=== PATIENT | female | born 1985 | race Caucasian/White ===

== ENCOUNTER 2017-12-28 00:04 | Emergency (ER) | payer OTHER ==
[~2017-12-28] VITALS: Ht 162.6 cm; Wt 81.6 kg
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
[2017-12-28 00:48] VITALS: BP 140/86
[2017-12-28 00:54] VITALS: BP 140/86
== END 2017-12-28 01:51 | disposition home or self-care (01) ==
LOC: EDBD 00:04 → EMR 01:40
DX: R51 Headache (principal); F31.9 Bipolar disorder, unspecified; E11.9 Type 2 diabetes mellitus without complications; Z59.0 Homelessness
CPT/HCPCS: 99282

== ENCOUNTER 2018-01-28 04:36 | Emergency (ER) | payer OTHER ==
[~2018-01-28] VITALS: Ht 157.5 cm; Wt 81.6 kg
[2018-01-28] MEDS ORDERED: NKM (04:46)
[2018-01-28] MEDS ORDERED: DiphenhydrAMINE 50mg/ml Inj IVP ONE (05:00)
[2018-01-28 05:16] VITALS: BP 141/80
[2018-01-28 05:32] LABS: BASOPHILS % (AUTO) 0.8 % (0.0-2.0); HEMATOCRIT 35.6 % (37.0-47.0); HEMOGLOBIN 10.9 G/DL (12.0-16.0); LYMPHOCYTES % (AUTO) 32.2 % (20.0-45.0); MEAN CORPUSCULAR VOLUME 65 FL (80-99); MONOCYTES % (AUTO) 6.2 % (1.0-10.0); NEUTROPHILS % (AUTO) 59.8 % (45.0-75.0); PLATELET COUNT 339 K/UL (150-450); RED BLOOD COUNT 5.46 M/UL (4.20-5.40); RED CELL DISTRIBUTION WIDTH 14.9 % (11.6-14.8); WHITE BLOOD COUNT 13.9 K/UL (4.8-10.8)
[2018-01-28] MEDS ORDERED: DiphenhydrAMINE 50mg/ml Inj ONE (05:33)
[2018-01-28 05:40] LABS: APPEARANCE,URINE SLIGHTLY CLOUDY; BILIRUBIN, URINE NEGATIVE (NEGATIVE); COLOR,URINE PALE YELLOW; GLUCOSE, URINE (UA) NEGATIVE (NEGATIVE); KETONES,URINE NEGATIVE (NEGATIVE); LEUKOCYTE ESTERASE ,URINE 1+ (NEGATIVE); NITRITE,URINE NEGATIVE (NEGATIVE); PH,URINE 7 (4.5-8.0); PROTEIN,URINE NEGATIVE (NEGATIVE); UROBILINOGEN,URINE NORMAL MG/DL (0.0-1.0)
[2018-01-28 05:48] LABS: ANION GAP 12 mmol/L (5-15); BLOOD UREA NITROGEN 9 mg/dL (7-18); CALCIUM 9.1 MG/DL (8.5-10.1); CARBON DIOXIDE 23 MMOL/L (21-32); CHLORIDE 101 MMOL/L (98-107); CREATININE 0.7 MG/DL (0.55-1.30); POTASSIUM 3.2 MMOL/L (3.5-5.1); SODIUM 136 MMOL/L (136-145)
[2018-01-28 06:00] LABS: ALANINE AMINOTRANSFERASE 46 U/L (12-78); ALBUMIN 3.9 G/DL (3.4-5.0); ALBUMIN/GLOBULIN RATIO 0.8 (1.0-2.7); ALKALINE PHOSPHATASE 118 U/L (46-116); ASPARTATE AMINO TRANSFERASE 23 U/L (15-37); BILIRUBIN,TOTAL 0.6 MG/DL (0.2-1.0); CREATINE KINASE 167 U/L (26-308)
--- NOTE | 2018-01-28 06:26 | Diagnostic Imaging Report ---
EXAM: XR Chest, 1 View CLINICAL HISTORY: CP TECHNIQUE: Frontal view of the chest. COMPARISON: No relevant prior studies available. FINDINGS: Normal heart size. No evidence for edema, consolidation or other acute cardiopulmonary process. IMPRESSION: No acute cardiopulmonary process
[2018-01-28] MEDS ORDERED: LORazepam Inj 2mg/ml 1ml IV ONE (07:15)
[2018-01-28] MEDS ORDERED: Isovue-370 150ml vial INJ PRN (07:15)
--- NOTE | 2018-01-28 07:16 | Emergency Room Report ---
History of Present Illness General Chief Complaint: Dizziness Source: Patient (Amrik Mahmood MD) Present Illness HPI Patient was seen twice at [facility] the last 24 hours. The second time she was complaining about weakness and chest pain. She had an abnormal EKG and was requesting further cardiac evaluation. The ER physician completed a chest x- ray and lab work and the patient had a normal troponin. The patient has bipolar disorder and suffers from anxiety. She states she's taking propranolol. She denies taking other medication at this time (see later as also admitted to [facility]). Review the records from [facility] reveals that she had a negative tox screen and essentially normal laboratory. The EKG was abnormal with T-wave inversions inferior and septally with prolonged QT interval. (Discussed with treating MD at [facility]). The patient is complaining about dizziness, weakness, anxiety and also chest pain. She says this is more chest pressure. She denies any calf pain or leg swelling. She's not taking control. She doesn't smoke and she has not had prolonged immobility recently. When she presented to the ED, she was complaining about high blood pressure. Patient on [facility]. Took some last night. Denies SI or HI. No fevers, chills, NVD, dysuria, , drugs, abdominal pain. Docusate was prescribed at [facility] on the first visit. No blood in the stool. Not evaluated for thyroid in the past. No rashes, change in vision. (Amrik Mahmood MD) Allergies: Coded Allergies: No Known Allergies (Unverified , 01/28/18) Patient History Past Medical History: see triage record, old chart reviewed - from [facility] Social History: Denies: smoking, alcohol use, drug use Social History Narrative board and care Last Menstrual Period: dec 2017 Reviewed Nursing Documentation: PMH: Agreed; PSxH: Agreed (Amrik Mahmood MD) Nursing Documentation-PMH Past Medical History: No Stated History (Amrik Mahmood MD) Review of Systems All Other Systems: negative except mentioned in HPI (Amrik Mahmood MD) Physical Exam Vital Signs Date Time Temp Pulse Resp B/P (MAP) Pulse Ox O2 Delivery O2 Flow Rate FiO2 01/28/18 04:42 98.1 74 20 141/80 97 Room Air Sp02 EP Interpretation: reviewed, normal General Appearance: well appearing, no apparent distress, GCS 15 Head: normocephalic Eyes: bilateral eye normal inspection, bilateral eye PERRL, bilateral eye EOMI ENT: moist mucus membranes Neck: supple Respiratory: chest non-tender, lungs clear, normal breath sounds Cardiovascular #1: regular rate, rhythm Cardiovascular #2: 2+ radial (R) Gastrointestinal: normal inspection, normal bowel sounds, non tender, no mass, non-distended Genitourinary: no CVA tenderness Musculoskeletal: back normal, gait/station normal, normal range of motion Neurologic: alert, oriented x3, grossly normal Psychiatric: no suicidal/homicidal ideation, anxious Skin: normal inspection, warm/dry (Amrik Mahmood MD) Medical Decision Making Diagnostic Impression: Primary Impression: Chest pain Qualified Codes: R07.9 - Chest pain, unspecified Additional Impressions: Dizziness Bipolar disorder Qualified Codes: F31.9 - Bipolar disorder, unspecified Anxiety Hypokalemia Leukocytosis Qualified Codes: D72.828 - Other elevated white blood cell count Prolonged QT interval ER Course Patient presents with weakness, dizziness and chest pain with anxiety. Differential includes acute myocardial infarction, pulmonary embolus, anxiety, electrolyte abnormality, exacerbation of bipolar disorder, lithium toxicity amongst others. He will she had a recent evaluation at [facility] there is an abnormal EKG and therefore she needs reevaluation here. EKG EKG will be performed, chest x-ray and labs. Patient is offered Benadryl however she refused. Clinically, PE is less likely, however, abnormal EKG disconcerting. EKG with NSR, T inversions inferiorly and septally. "LVH". CXR clear. Labs with slightly elevated WBC, anemia, slightly elevated BNP, low potassium ( minimally). Tox and UA neg. Based on the abnormal EKG a CT angiogram is ordered. Also lithium level is ordered (stat send out). Patient initially refused ativan, but then took. Some improvement. CTA pending. Based on EKG and symptoms, needs admission. Consider cardiac Echo. [facility] level also pending. Signed out to Dr. Mckinney. Laboratory Tests Test 01/28/18 04:57 01/28/18 05:15 01/28/18 05:17 Urine Color Pale yellow Urine Appearance Slightly cloudy Urine pH 7 (4.5-8.0) Urine Specific [place] 1.005 (1.005-1.035) Urine Protein Negative (NEGATIVE) Urine Glucose (UA) Negative (NEGATIVE) Urine Ketones Negative (NEGATIVE) Urine Blood Negative (NEGATIVE) Urine Nitrite Negative (NEGATIVE) Urine Bilirubin Negative (NEGATIVE) Urine Urobilinogen Normal MG/DL (0.0-1.0) Urine Leukocyte Esterase 1+ (NEGATIVE) H Urine RBC 0-2 /HPF (0 - 2) Urine WBC 0-2 /HPF (0 - 2) Urine Squamous Epithelial Cells Moderate /LPF (NONE/OCC) H Urine Bacteria Few /HPF (NONE) Urine HCG, Qualitative Negative (NEGATIVE) Urine Opiates Screen Negative (NEGATIVE) Urine Barbiturates Screen Negative (NEGATIVE) Phencyclidine (PCP) Screen Negative (NEGATIVE) Urine Amphetamines Screen Negative (NEGATIVE) Urine Benzodiazepines Screen Negative (NEGATIVE) Urine Cocaine Screen Negative (NEGATIVE) Urine Marijuana (THC) Screen Negative (NEGATIVE) [place] Level Pending White Blood Count 13.9 K/UL (4.8-10.8) H Red Blood Count 5.46 M/UL (4.20-5.40) H Hemoglobin 10.9 G/DL (12.0-16.0) L Hematocrit 35.6 % (37.0-47.0) L Mean Corpuscular Volume 65 FL (80-99) L Mean Corpuscular Hemoglobin 19.9 PG (27.0-31.0) L Mean Corpuscular Hemoglobin Concent 30.5 G/DL (32.0-36.0) L Red Cell Distribution Width 14.9 % (11.6-14.8) H Platelet Count 339 K/UL (150-450) Mean Platelet Volume 7.3 FL (6.5-10.1) Neutrophils (%) (Auto) 59.8 % (45.0-75.0) Lymphocytes (%) (Auto) 32.2 % (20.0-45.0) Monocytes (%) (Auto) 6.2 % (1.0-10.0) Eosinophils (%) (Auto) 1.0 % (0.0-3.0) Basophils (%) (Auto) 0.8 % (0.0-2.0) Erythrocyte Sedimentation Rate 18 MM/HR (0-20) Prothrombin Time 10.5 SEC (9.30-11.50) Prothrombin Time INR 1.0 (0.9-1.1) PTT 31 SEC (23-33) Sodium Level 136 MMOL/L (136-145) Potassium Level 3.2 MMOL/L (3.5-5.1) L Chloride Level 101 MMOL/L (98-107) Carbon Dioxide Level 23 MMOL/L (21-32) Anion Gap 12 mmol/L (5-15) Blood Urea Nitrogen 9 mg/dL (7-18) Creatinine 0.7 MG/DL (0.55-1.30) Estimate Glomerular Filtration Rate > 60 mL/min (>60) Glucose Level 109 MG/DL (74-106) H Calcium Level 9.1 MG/DL (8.5-10.1) Total Bilirubin 0.6 MG/DL (0.2-1.0) Aspartate Amino Transferase (AST) 23 U/L (15-37) Alanine Aminotransferase (ALT) 46 U/L (12-78) Alkaline Phosphatase 118 U/L (46-116) H Total Creatine Kinase 167 U/L (26-308) Troponin I 0.000 ng/mL (0.000-0.056) Pro-B-Type Natriuretic Peptide 290 pg/mL (0-125) H Total Protein 8.7 G/DL (6.4-8.2) H Albumin 3.9 G/DL (3.4-5.0) Globulin 4.8 g/dL Albumin/Globulin Ratio 0.8 (1.0-2.7) L Thyroid Stimulating Hormone (TSH) 2.002 uiU/mL (0.358-3.740) (Amrik Mahmood MD) ER Course Patient was discussed with Dr. Villanueva for further workup. CT chest was unremarkable read by radiology. The patient was given pain medications for bladder spasm. The patient may have some issues with nephrogenic diabetes insipidusbut given the patients normal chemistry I feel this is unlikely. and lithium level is currently being sent out.The patient does not show any tremor or ataxia consistent with a severe lithium overdose Labs Test 01/28/18 04:57 01/28/18 05:15 01/28/18 05:17 Urine Color Pale yellow Urine Appearance Slightly cloudy Urine pH 7 (4.5-8.0) Urine Specific [place] 1.005 (1.005-1.035) Urine Protein Negative (NEGATIVE) Urine Glucose (UA) Negative (NEGATIVE) Urine Ketones Negative (NEGATIVE) Urine Blood Negative (NEGATIVE) Urine Nitrite Negative (NEGATIVE) Urine Bilirubin Negative (NEGATIVE) Urine Urobilinogen Normal MG/DL (0.0-1.0) Urine Leukocyte Esterase 1+ (NEGATIVE) Urine RBC 0-2 /HPF (0 - 2) Urine WBC 0-2 /HPF (0 - 2) Urine Squamous Epithelial Cells Moderate /LPF (NONE/OCC) Urine Bacteria Few /HPF (NONE) Urine HCG, Qualitative Negative (NEGATIVE) Urine Opiates Screen Negative (NEGATIVE) Urine Barbiturates Screen Negative (NEGATIVE) Phencyclidine (PCP) Screen Negative (NEGATIVE) Urine Amphetamines Screen Negative (NEGATIVE) Urine Benzodiazepines Screen Negative (NEGATIVE) Urine Cocaine Screen Negative (NEGATIVE) Urine Marijuana (THC) Screen Negative (NEGATIVE) White Blood Count 13.9 K/UL (4.8-10.8) Red Blood Count 5.46 M/UL (4.20-5.40) Hemoglobin 10.9 G/DL (12.0-16.0) Hematocrit 35.6 % (37.0-47.0) Mean Corpuscular Volume 65 FL (80-99) Mean Corpuscular Hemoglobin 19.9 PG (27.0-31.0) Mean Corpuscular Hemoglobin Concent 30.5 G/DL (32.0-36.0) Red Cell Distribution Width 14.9 % (11.6-14.8) Platelet Count 339 K/UL (150-450) Mean Platelet Volume 7.3 FL (6.5-10.1) Neutrophils (%) (Auto) 59.8 % (45.0-75.0) Lymphocytes (%) (Auto) 32.2 % (20.0-45.0) Monocytes (%) (Auto) 6.2 % (1.0-10.0) Eosinophils (%) (Auto) 1.0 % (0.0-3.0) Basophils (%) (Auto) 0.8 % (0.0-2.0) Erythrocyte Sedimentation Rate 18 MM/HR (0-20) Prothrombin Time 10.5 SEC (9.30-11.50) Prothromb Time International Ratio 1.0 (0.9-1.1) Activated Partial Thromboplast Time 31 SEC (23-33) Sodium Level 136 MMOL/L (136-145) Potassium Level 3.2 MMOL/L (3.5-5.1) Chloride Level 101 MMOL/L (98-107) Carbon Dioxide Level 23 MMOL/L (21-32) Anion Gap 12 mmol/L (5-15) Blood Urea Nitrogen 9 mg/dL (7-18) Creatinine 0.7 MG/DL (0.55-1.30) Estimat Glomerular Filtration Rate > 60 mL/min (>60) Glucose Level 109 MG/DL (74-106) Calcium Level 9.1 MG/DL (8.5-10.1) Total Bilirubin 0.6 MG/DL (0.2-1.0) Aspartate Amino Transf (AST/SGOT) 23 U/L (15-37) Alanine Aminotransferase (ALT/SGPT) 46 U/L (12-78) Alkaline Phosphatase 118 U/L (46-116) Total Creatine Kinase 167 U/L (26-308) Troponin I 0.000 ng/mL (0.000-0.056) Pro-B-Type Natriuretic Peptide 290 pg/mL (0-125) Total Protein 8.7 G/DL (6.4-8.2) Albumin 3.9 G/DL (3.4-5.0) Globulin 4.8 g/dL Albumin/Globulin Ratio 0.8 (1.0-2.7) Thyroid Stimulating Hormone (TSH) 2.002 uiU/mL (0.358-3.740) (Dimitry Mckinney MD) EKG Diagnostic Results Rate: normal Rhythm: NSR ST Segments: no acute changes - T wave inversions inferiorly and septally with QT prolongation (Amrik Mahmood MD) Rhythm Strip Diag. Results EP Interpretation: yes Rhythm: NSR, no PVC's, no ectopy (Amrik Mahmood MD) Chest X-Ray Diagnostic Results Chest X-Ray Diagnostic Results : Chest X-Ray Ordered: Yes # of Views/Limited/Complete: 1 View Indication: Chest Pain Interpretation: no consolidation, no effusion, no pneumothorax Impression: No acute disease Electronically Signed by: Electronically signed by Amrik Mahmood MD (Amrik Mahmood MD) CT/MRI/US Diagnostic Results CT/MRI/US Diagnostic Results : Imaging Test Ordered: chest Impression pending (Amrik Mahmood MD) Last Vital Signs Date Time Temp Pulse Resp B/P (MAP) Pulse Ox O2 Delivery O2 Flow Rate FiO2 01/28/18 07:30 98.3 73 24 137/67 100 Room Air 12/8/18 05:16 99 Status: improved Reevaluation Impression Last Vital Signs Date Time Temp Pulse Resp B/P (MAP) Pulse Ox O2 Delivery O2 Flow Rate FiO2 01/28/18 07:30 98.3 73 24 137/67 100 Room Air 01/28/18 05:16 99 (Amrik Mahmood MD) Status: unchanged (Dimitry Mckinney MD) Disposition: XFER SHT-TRM HOSP Condition: Serious Referrals: NOT CHOSEN [facility]/,REFERRING (PCP) Amrik Mahmood MD Jan 28, 2018 07:16 Dimitry Mckinney MD Jan 28, 2018 11:02
[2018-01-28] MEDS ORDERED: LORazepam Inj 2mg/ml 1ml ONE (07:24)
[2018-01-28 07:30] VITALS: BP 137/67
--- NOTE | 2018-01-28 08:32 | Diagnostic Imaging Report ---
ADDENDUM - Added by Reji Chanel MD on 01/28/2018 8:53 AM (-08:00) Subsequent 3-D rotating MIP images were performed and were reviewed. Findings and impression remain unchanged. EXAM: CT Angiography Chest With Intravenous Contrast CLINICAL HISTORY: Chest pain TECHNIQUE: Axial computed tomographic angiography images of the chest with intravenous contrast using pulmonary embolism protocol. CTDI is 62 mGy and DLP is 607 mGy-cm. One or more of the following dose reduction techniques were used: automated exposure control, adjustment of the mA and/or kV according to patient size, use of iterative reconstruction technique. MIP reconstructed images were created and reviewed. Coronal and sagittal reformatted images were created and reviewed. COMPARISON: Chest x-ray dated 01/28/18 FINDINGS: Pulmonary arteries: Unremarkable. No pulmonary embolism. Aorta: No thoracic aortic aneurysm. Lungs: Unremarkable. No mass. No consolidation. Pleural space: Unremarkable. No significant effusion. No pneumothorax. Heart: Unremarkable. No cardiomegaly. No significant pericardial effusion. No evidence of RV dysfunction. Bones/joints: Incidental note of narrowing of the anterior aspect of the left third rib, which has a more pronounced inward curvature compared to the adjacent ribs, likely congenital. No acute fracture. No dislocation. Soft tissues: Unremarkable. Lymph nodes: Unremarkable. No enlarged lymph nodes. IMPRESSION: 1. No acute findings. No evidence of pulmonary embolism. No thoracic aortic aneurysm or dissection. No pulmonary consolidation or effusion. 2. Incidental note of narrowing of the anterior aspect of the left third rib, which has a more pronounced inward curvature compared to the adjacent ribs, likely congenital.
[2018-01-28] MEDS ORDERED: Phenazopyridine 200mg tab ORAL ONE ×2 (10:00→10:05)
[2018-01-28] MEDS ORDERED: Morphine Sulfate 4mg/ml Inj (IV/IM USE ONLY) IVP ONE (10:45)
[2018-01-28 11:22] VITALS: BP 125/85
== END 2018-01-28 11:23 | disposition short-term general hospital (02) ==
LOC: EMR 04:54 → MERGE 04:54 → EMR 11:23
DX: R07.9 Chest pain, unspecified (principal); R42 Dizziness and giddiness; F31.9 Bipolar disorder, unspecified; F41.9 Anxiety disorder, unspecified; E87.6 Hypokalemia; D72.828 Other elevated white blood cell count; R53.1 Weakness; N32.89 Other specified disorders of bladder
CPT/HCPCS: 36415; 71045; 71275; 80053; 80178; 80307; 81003; 81025; 82550; 83880; 84443; 84484; 85025; 85610; 85651; 85730; 93005; 96361; 96374; 96375; 99285; J2270; Q9967

== ENCOUNTER → 2018-02-14 | Emergency (ER) | payer OTHER ==
[~2018-02-14] VITALS: Ht 162.6 cm; Wt 81.6 kg
[~2018-02-14] MED LIST: LITHIUM CARBON300 MG ORAL; NKM
[2018-02-14 11:34] VITALS: BP 146/80
[2018-02-14 12:20] VITALS: BP 146/80
[2018-02-14 13:02] LABS: APPEARANCE,URINE SLIGHTLY CLOUDY; BILIRUBIN, URINE NEGATIVE (NEGATIVE); COLOR,URINE PALE YELLOW; GLUCOSE, URINE (UA) NEGATIVE (NEGATIVE); KETONES,URINE NEGATIVE (NEGATIVE); LEUKOCYTE ESTERASE ,URINE 2+ (NEGATIVE); NITRITE,URINE NEGATIVE (NEGATIVE); PH,URINE 8 (4.5-8.0); PROTEIN,URINE 2+ (NEGATIVE); UROBILINOGEN,URINE NORMAL MG/DL (0.0-1.0)
== END | disposition home or self-care (01) ==
LOC: EDUNIT# 11:32 → EDBD 11:32 → EMR 12:05
DX: R10.9 Unspecified abdominal pain (principal)
CPT/HCPCS: 81003; 81025; 99283

== ENCOUNTER 2018-02-23 06:58 | Emergency (ER) | payer OTHER ==
[~2018-02-23] VITALS: Ht 157.5 cm; Wt 81.6 kg
--- NOTE | 2018-02-23 07:05 | NUR ---
pt eloped off evelyn stating she does not want to be here, pt spoke a few words with pt and pt decided to leave, pt is awake, alert and oriented x 4, pt denies SI, HI, or any hallucinations, no sob or labored breathing noted, pt is ambulatory, nad noted, md immediately informed.
[2018-02-23 07:19] VITALS: BP 158/100
--- NOTE | 2018-02-24 18:07 | Emergency Room Report ---
History of Present Illness General Chief Complaint: Hypertension Source: Patient Present Illness Allergies: Coded Allergies: No Known Allergies (Unverified , 02/23/18) Patient History Now: No Nursing Documentation-PMH Hx Cardiac Problems: No Hx Hypertension: Yes Hx Pacemaker: No Hx Asthma: No Hx COPD: No Hx Diabetes: Yes Hx Cancer: No Hx Gastrointestinal Problems: No Hx Dialysis: No History Of Psychiatric Problem: Yes - BIPOLAR Hx Neurological Problems: No Hx Cerebrovascular Accident: No Hx Seizures: No Physical Exam Vital Signs Date Time Temp Pulse Resp B/P (MAP) Pulse Ox O2 Delivery O2 Flow Rate FiO2 02/23/18 06:58 104 16 158/100 99 Room Air Medical Decision Making Diagnostic Impression: Primary Impression: Hypertension ER Course patient came by EMS. patient been here multiple times for similar complaint. patient walked out of ED prior to evaluation Last Vital Signs Date Time Temp Pulse Resp B/P (MAP) Pulse Ox O2 Delivery O2 Flow Rate FiO2 02/23/18 07:19 104 16 Room Air 02/23/18 07:19 158/100 99 Status: unchanged Disposition: ELOPED Condition: Stable Referrals: [facility]ERR[facility] (PCP) Ric Gonzalez MD Feb 24, 2018 18:07
== END 2018-02-23 07:20 | disposition left against medical advice (07) ==
LOC: EDBD 06:58 → EMR 07:20
DX: I10 Essential (primary) hypertension (principal); E11.9 Type 2 diabetes mellitus without complications; F31.9 Bipolar disorder, unspecified
CPT/HCPCS: 99282

== ENCOUNTER 2018-03-01 00:12 | Emergency (ER) | payer OTHER ==
[~2018-03-01] VITALS: Ht 157.5 cm; Wt 81.6 kg
[2018-03-01 00:32] VITALS: BP 141/90
[2018-03-01] MEDS ORDERED: ABILIFY2 MG ORAL (00:39)
[2018-03-01] MEDS ORDERED: METFORMIN500 MG/5 M PO (00:39)
--- NOTE | 2018-03-01 00:45 | NUR ---
ED Nurse Note: Patient SAI from [facility], states she needs a place to sleep, she has generalized pain and req medication. Pt c/o depression to triage nurse. Pt AA&ox4, gcs=15, skin warm and dry, resp even and unlabored, -n/v/d, ambulates w/ steady gait ,Patient denies SI/HI/VH/MD CHUCHO at the bedside. will cont monitor. vss.
--- NOTE | 2018-03-01 00:55 | NUR ---
ED Nurse Note: pt stated to "I just need a place to sleep. I don't have any pain."
--- NOTE | 2018-03-01 01:00 | NUR ---
ED Nurse Note: pt walking to the nursing station, inappropriate language, disruptive behavior, states " I need my meds right now, I want to be discharged and I want my meds." ERMD notified.
[2018-03-01 02:00] VITALS: BP 141/90
--- NOTE | 2018-03-01 02:00 | NUR ---
ED Nurse Note: all belongings left w/ pt. pt vss, ambulatory w/ steady gait, resp even and unlabored.
--- NOTE | 2018-03-01 02:00 | NUR ---
ED Nurse Note: pt discharge instruction provided, pt refused to sign paperwork, pt reports she will be going back to [facility] but needs transportation. House sup notified and issued taxi voucher for transportation. Pt advised to follow up w/ pcp in 2-3days.
[2018-03-01] MEDS ORDERED: BACITRACIN15 GM TOPIC (06:02)
[2018-03-01] MEDS ORDERED: KENALOG 0.1% LO60 ML APPLIC (06:02)
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
== END 2018-03-01 02:00 | disposition home or self-care (01) ==
LOC: EDBD 00:12 → EMR 00:51
DX: F41.9 Anxiety disorder, unspecified (principal); I10 Essential (primary) hypertension; E11.9 Type 2 diabetes mellitus without complications; F32.9 Major depressive disorder, single episode, unspecified
CPT/HCPCS: 99282

== ENCOUNTER 2018-03-01 05:06 | Emergency (ER) | payer OTHER ==
[~2018-03-01] VITALS: Ht 157.5 cm; Wt 81.6 kg
[~2018-03-01 05:06] MED LIST changes: +ABILIFY2 MG ORAL; +METFORMIN500 MG/5 M PO
[2018-03-01 05:24] VITALS: BP 148/98
--- NOTE | 2018-03-01 05:26 | NUR ---
ED Nurse Note: pt came in with lapd complaining of skin rash on bilateral hand. pt denies pain. only itching.
[2018-03-01] MEDS ORDERED: Bacitracin Oint UD TOPIC ONE (05:30)
[2018-03-01] MEDS ORDERED: BACITRACIN15 GM TOPIC (06:02)
[2018-03-01] MEDS ORDERED: KENALOG 0.1% LO60 ML APPLIC (06:02)
[2018-03-01 06:15] VITALS: BP 148/98
--- NOTE | 2018-03-01 06:15 | NUR ---
ED Nurse Note: pt was cleared for discharge and able to verbalize discharge instruction. pt wrote a thank you letter to dr villarreal. id band removed. pt went out of the ed with all belongings. vss. aox4
--- NOTE | 2018-03-02 00:05 | Emergency Room Report ---
History of Present Illness General Chief Complaint: Skin Rash/Abscess Source: Patient Present Illness HPI 32-year-old female presents ED for evaluation. Patient brought in by [employer]. Patient was just discharged from here recently. Patient was given a taxi voucher and patient asked taxi come back to the hospital. Patient started screaming at security and [employer] was called. Patient states she is here because of a rash on her hands. States it is itchy. Denies pain. States that she's had this rash for many years. Was told that she has eczema. Denies fevers or chills. No other aggravating relieving factors. Denies any other associated symptoms Allergies: Coded Allergies: No Known Allergies (Unverified , 02/23/18) Patient History Past Medical History: DM, HTN Past Surgical History: none Pertinent Family History: none Social History: Denies: smoking, alcohol use, drug use Last Menstrual Period: last month Now: No Immunizations: UTD Reviewed Nursing Documentation: PMH: Agreed; PSxH: Agreed Nursing Documentation-PMH Hx Cardiac Problems: No Hx Hypertension: Yes Hx Pacemaker: No Hx Asthma: No Hx COPD: No Hx Diabetes: Yes Hx Cancer: No Hx Gastrointestinal Problems: No Hx Dialysis: No Hx Neurological Problems: No Hx Cerebrovascular Accident: No Hx Seizures: No Review of Systems All Other Systems: negative except mentioned in HPI Physical Exam Vital Signs Date Time Temp Pulse Resp B/P (MAP) Pulse Ox O2 Delivery O2 Flow Rate FiO2 03/01/18 05:21 97.9 72 16 148/98 99 Room Air Sp02 EP Interpretation: reviewed, normal General Appearance: no apparent distress, alert, GCS 15, non-toxic Head: normocephalic ENT: normal ENT inspection Neck: normal inspection Respiratory: normal inspection Cardiovascular #1: normal inspection Gastrointestinal: normal inspection Rectal: deferred Genitourinary: no CVA tenderness Musculoskeletal: normal inspection Neurologic: alert, oriented x3, responsive, motor strength/tone normal, sensory intact, speech normal Psychiatric: no delusions, anxious Skin: rash - eczematous rash to hands. non indurated base Lymphatic: normal inspection Medical Decision Making Diagnostic Impression: Primary Impression: Rash Additional Impression: Behavioral disorder ER Course Hospital Course 32-year-old female presents to ED with rash to hands Differential diagnoses include: Cellulitis, dermatitis, insect bite, abscess Clinical course Patient placed on stretcher. After initial history, physical exam reveals a young female in no acute distress. On exam there appears to be a eczematous rash to the dorsal aspect of both hands. Nonerythematous base. Patient documents history of eczema. We'll prescribe triamcinolone In triage patient was agitated and combative and screaming. Patient is not calm and cooperative. I asked patient why she came back to the hospital as I just discharged her. Patient states that she used hand truck unloader in the taxi which irritated her skin so she asked taxi to come back Patient escalated matters with security and thus 911 was called. I explained to JACEKD that this patient has been here multiple times recently for nonemergent complaints. Very often the patient walks out or elopes. [facility] states that they are aware of patient's multiple EMS encounters Patient is not a danger to herself or others. No SI or HI. Patient will be discharged with prescription for triamcinolone Diagnosis - rash, behavioral disorder stable and discharged to home with prescription for triamcinolone. Instructed to followup with PMD. Instructed return to ED if symptoms recur or worsen Last Vital Signs Date Time Temp Pulse Resp B/P (MAP) Pulse Ox O2 Delivery O2 Flow Rate FiO2 03/01/18 06:15 97.9 72 16 148/98 99 Room Air Status: improved Disposition: HOME, SELF-CARE Condition: Stable Scripts Bacitracin (Bacitracin) 28.4 Gm Oint...g. 1 APPLIC TOPIC THREE TIMES A DAY, #28.4 GM Prov: Ric Gonzalez MD 03/01/18 Triamcinolone Acet (Triamcinolone Acetonide) 60 Ml Lotion 60 ML APPLIC BID, #60 ML Prov: Ric Gonzalez MD 03/01/18 Patient Instructions: Hand Dermatitis, Usss-ea-Alrg Ric Gonzalez MD Mar 02, 2018 00:05
== END 2018-03-01 06:15 | disposition home or self-care (01) ==
LOC: EMR 05:17
DX: R21 Rash and other nonspecific skin eruption (principal); F91.9 Conduct disorder, unspecified; E11.9 Type 2 diabetes mellitus without complications; I10 Essential (primary) hypertension
CPT/HCPCS: 99282

== ENCOUNTER 2018-06-05 19:36 | Emergency (ER) | payer OTHER ==
[~2018-06-05] VITALS: Ht 157.5 cm; Wt 78.0 kg
[~2018-06-05 19:36] MED LIST changes: +BACITRACIN15 GM TOPIC; +KENALOG 0.1% LO60 ML APPLIC
--- NOTE | 2018-06-05 19:50 | NUR ---
ED Nurse Note: pt came to ed c/o SOB for 2days. pt presens with cough. pt is able to speak full sentences without losing breath. pt sating at 97% on room air. pt denies pain at this time.
[2018-06-05 19:51] VITALS: BP 148/80
[2018-06-05] MEDS ORDERED: Albuterol ud Inhalation HHN ONE (20:15)
[2018-06-05] MEDS ORDERED: Ipratropium 0.02% Inh Soln 2.5ml UD HHN ONE (20:15)
[2018-06-05] MEDS ORDERED: AMOXICILLIN500 MG ORAL (21:11)
[2018-06-05 21:15] VITALS: BP 147/84
--- NOTE | 2018-06-05 21:15 | NUR ---
ER DISCHARGE NOTE: Patient is cleared to be discharged per ERMD, pt is aox4, on room air, with stable vital signs. pt was given dc and prescription instructions, pt was able to verbalize understanding, pt id band removed. pt is able to ambulate with steady gait. pt took all belongings.
--- NOTE | 2018-06-05 21:33 | Emergency Room Report ---
History of Present Illness General Chief Complaint: Dizziness Source: Patient Present Illness HPI 32-year-old female presents ED for evaluation. Complaining of dizziness and shortness of breath 1 day. States she's had a cough which is dry. As fevers or chills. States she is also having diarrhea for the last 3 days. Denies sick contacts or recent travel. Denies recent antibiotic use. Denies any chest pain. No other aggravating relieving factors. Denies any other associated symptoms Allergies: Coded Allergies: No Known Allergies (Unverified , 02/23/18) Patient History Past Medical History: HTN, psych hx Past Surgical History: none Pertinent Family History: none Social History: Denies: smoking, alcohol use, drug use Last Menstrual Period: 05/28/18 Now: No Immunizations: UTD Reviewed Nursing Documentation: PMH: Agreed; PSxH: Agreed Nursing Documentation-PMH Past Medical History: No History, Except For Hx Cardiac Problems: No Hx Hypertension: Yes Hx Pacemaker: No Hx Asthma: No Hx COPD: No Hx Diabetes: Yes Hx Cancer: No Hx Gastrointestinal Problems: No Hx Dialysis: No Hx Neurological Problems: No Hx Cerebrovascular Accident: No Hx Seizures: No Review of Systems All Other Systems: negative except mentioned in HPI Physical Exam Vital Signs Date Time Temp Pulse Resp B/P (MAP) Pulse Ox O2 Delivery O2 Flow Rate FiO2 06/05/18 19:40 98.2 81 12 148/80 97 Room Air 06/05/18 20:19 21 Sp02 EP Interpretation: reviewed, normal General Appearance: no apparent distress, alert, GCS 15, non-toxic Head: normocephalic, atraumatic Eyes: bilateral eye normal inspection, bilateral eye PERRL ENT: hearing grossly normal, normal pharynx, no angioedema, normal voice Neck: full range of motion, supple/symm/no masses Respiratory: chest non-tender, lungs clear, normal breath sounds, speaking full sentences Cardiovascular #1: regular rate, rhythm, no edema Cardiovascular #2: 2+ carotid (R), 2+ carotid (L), 2+ radial (R), 2+ radial (L) , 2+ dorsalis pedis (R), 2+ dorsalis pedis (L) Gastrointestinal: normal bowel sounds, non tender, soft, non-distended, no guarding, no rebound Rectal: deferred Genitourinary: normal inspection, no CVA tenderness Musculoskeletal: back normal, gait/station normal, normal range of motion, non- tender Neurologic: alert, oriented x3, responsive, motor strength/tone normal, sensory intact, speech normal Psychiatric: judgement/insight normal, memory normal, mood/affect normal, no suicidal/homicidal ideation Reflexes: 3+ bicep (R), 3+ bicep (L), 3+ tricep (R), 3+ tricep (L), 3+ knee (R) , 3+ knee (L) Skin: normal color, no rash, warm/dry, well hydrated Lymphatic: no adenopathy Medical Decision Making Diagnostic Impression: Primary Impression: Pneumonia Qualified Codes: J18.1 - Lobar pneumonia, unspecified organism Additional Impression: Anxiety ER Course Hospital Course 32 yo F presents with dizziness, SOB. diarrhea Differential diagnoses include: URI, pharyngitis, otitis media, asthma Clinical course Patient placed on stretcher. After initial history, physical exam reveals a female in no acute distress. Bilateral TM unremarkable. No pharyngeal erythema. No tonsillar exudates. No lymphadenopathy. lungs clear. abdomen soft. I reviewed EMR. Patient is well-known to [facility]. Has been here multiple times for similar presentations. History of psych and anxiety. Has had multiple workups performed here which have been unremarkable I ordered EKG, chest x-ray and breathing treatment EKGnormal sinus rhythm, T-wave inversions in lateral leads (unchanged from prior EKGs) Chest x-rayhaziness her right lower lung field concerning for pneumonia patient afebrile, vital stable. Discussed findings with patient. Can be discharged to home with antibiotics. States she has a PMD. Diagnosis - pneumonia, anxiety Stable and discharged home with Rx amoxicillin. Instructed to followup with PMD. Return to ED if symptoms recur or worsen EKG Diagnostic Results Rate: normal Rhythm: NSR ST Segments: other - twave inversions in lateral leads ASA given to the pt in ED: No Rhythm Strip Diag. Results EP Interpretation: yes Rhythm: NSR, no PVC's, no ectopy Chest X-Ray Diagnostic Results Chest X-Ray Diagnostic Results : Chest X-Ray Ordered: Yes # of Views/Limited/Complete: 1 View Indication: Shortness of Breath EP Interpretation: Yes Interpretation: no effusion, no pneumothorax, other - RLL haziness Impression: Other - pneumonia Electronically Signed by: Electronically signed by Ric Gonzalez MD Last Vital Signs Date Time Temp Pulse Resp B/P (MAP) Pulse Ox O2 Delivery O2 Flow Rate FiO2 06/05/18 21:15 98.2 88 18 147/84 100 Room Air 21 Status: improved Disposition: HOME, SELF-CARE Condition: Stable Scripts Amoxicillin* (AMOXIL*) 500 Mg Capsule 500 MG ORAL THREE TIMES A DAY, #21 CAP Prov: Ric Gonzalez MD 06/05/18 Referrals: Celestino [facility] Patient Instructions: Community-Acquired Pneumonia, Adult, [id number] Ric Gonzalez MD Jun 05, 2018 21:32
--- NOTE | 2018-06-06 09:26 | Diagnostic Imaging Report ---
Indication: Shortness of breath Technique: One view of the chest Comparison: none Findings: The heart is borderline enlarged. There is bilateral interstitial and airspace edema, predominantly the former. No definite airspace consolidation or pleural effusions. Impression: Cardiomegaly. Evidence of bilateral pulmonary edema versus infiltrates This agrees with the preliminary interpretation provided overnight by [facility] teleradiology service.
--- NOTE | 2018-06-06 18:22 | Cardiology Report ---
APPROVED REPORT EKG Measurement Heart [id number] Normal sinus rhythm T wave abnormality, consider inferolateral ischemia Prolonged QT Abnormal ECG
== END 2018-06-05 21:34 | disposition home or self-care (01) ==
LOC: EMR 20:13
DX: J18.1 Lobar pneumonia, unspecified organism (principal); F41.9 Anxiety disorder, unspecified; I10 Essential (primary) hypertension; E11.9 Type 2 diabetes mellitus without complications; I51.7 Cardiomegaly
CPT/HCPCS: 71045; 93005; 94664; 99284